=== PATIENT | male | born 2000 | race Caucasian/White ===

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

== ENCOUNTER 2022-04-24 00:42 | Emergency (ER) | payer BC ==
[~2022-04-24] VITALS: Ht 177.8 cm; Wt 86.2 kg
--- NOTE | 2022-04-24 01:30 | NUR ---
TO ER BED 4. BIBMOTHER C/O HEMATURIA WITH PAIN WHILE URINATING. CHANGED INTO GOWN. URINE COLLCTED . CONNECTED TO MONITOR. AWAITING MD RAYGOZA
--- NOTE | 2022-04-24 01:31 | NUR ---
URINE SAMPLE COLLECTED AND SENT TO LAB
[2022-04-24] MEDS ORDERED: CIPROFLOXACIN HCL 500 MG TABLET ONE (03:31)
[2022-04-24 03:32] LABS: BILIRUBIN,URINE MODERATE (NEGATIVE); COLOR,URINE RED (YELLOW); LEUKOCYTE ESTERASE ,URINE MODERATE (NEGATIVE); NITRITE, URINE NEGATIVE (NEGATIVE); PROTEIN,URINE >=300 mg/dl (NEGATIVE); UGLUCOSE NEGATIVE (NEGATIVE)
[2022-04-24 04:14] VITALS: BP 120/65
[2022-04-24 07:49] LABS: BACTERIA,URINE Many /HPF (None Seen); RBC,URINE 21-50 /HPF (0-2); SQUAMOUS EPITHELIAL CELL,UR Rare /HPF (None Seen); WBC,URINE 21-50 /HPF (0-3)
== END 2022-04-24 04:15 | disposition home or self-care (01) ==
LOC: ER 00:45
DX: N39.0 Urinary tract infection, site not specified (principal)
CPT/HCPCS: 81001; 87086-TC; 87186-TC